=== PATIENT | female | born 1965 | race Two or more races ===

== ENCOUNTER 2018-01-23 17:33 | Emergency (ER) | payer OTHER ==
[~2018-01-23] VITALS: Ht 165.1 cm; Wt 66.7 kg
--- NOTE | 2018-01-23 18:31 | NUR ---
DR SEBASTIAN AT BEDSIDE FOR EVAL.
[2018-01-23] MEDS ORDERED: HYDROCODONE/APAP 10/325MG 1 EA TABLET ONE (18:40)
[2018-01-23] MEDS ORDERED: HYDROCODONE/APAP 10/325MG 1 EA TABLET PO ONE (19:00)
[2018-01-23] MEDS ORDERED: HYDROMORPHONE INJ 0.5 MG/0.5 ML SYRINGE ONE (19:17)
[2018-01-23] MEDS ORDERED: ONDANSETRON 4 MG TAB.RAPDIS ONE (19:17)
[2018-01-23] MEDS ORDERED: ONDANSETRON 4 MG TAB.RAPDIS SL ONE (19:30)
[2018-01-23] MEDS ORDERED: HYDROMORPHONE 1 MG/1 ML DISP.SYRIN IM ONE (19:30)
--- NOTE | 2018-01-23 19:48 | NUR ---
Patient discharged to home in stable condition. Written and verbal after care instructions given. Patient verbalizes understanding of instruction.
--- NOTE | 2018-01-23 20:10 | NUR ---
Augusto garcia in [facility] - 01/23/18 at 2010 by STAR Patient discharged to home in stable condition. Written and verbal after care instructions given. Patient verbalizes understanding of instruction.
[2018-01-23 20:11] VITALS: BP 135/84
== END 2018-01-23 19:48 | disposition home or self-care (01) ==
LOC: ER 17:35
DX: K42.9 Umbilical hernia without obstruction or gangrene (principal)
CPT/HCPCS: 96372; 99283; A4606; Z7610